=== PATIENT | male | born 1930 | race Caucasian/White ===

== ENCOUNTER 2018-02-17 07:07 | Day surgery (SDC) | payer OTHER, MEDICARE ==
--- NOTE | 2018-02-16 12:29 | HP ---
- Patient Scheduled date of Surgery: 02/17/18 Scheduled Surgical Procedure: Phacoemulsification and cataract extraction with PCIOL Affected Eye: Right Chief Complaint (Indication for surgery): Decreased vision affecting ADLs ( mature cataract od) - Ocular History Other Eye History: Narrow angles Eye Medications: vigamox Previous Eye Surgery: s/p LPI OD, s/p ce/pciol in [facility] - Medical History Illnesses: Other (arthritis) Current Medications: Ambulatory Orders Multivitamin [Daily Multiple Vitamin] 1 tab PO DAILY 10/12/11 Losartan Potassium 25 mg PO DAILY 12/16/15 Omeprazole [Prilosec (RX)] 40 mg PO DAILY 12/16/15 Allergies/Adverse Reactions: Allergies Allergy/AdvReac Type Severity Reaction Status Date / Time No Known Allergies Allergy Verified 10/12/11 11:27 Ocular Examination - Best Corrected Visual Acuity Distance: Right eye: 20/80 Distance: Left eye: 20/20 - External/Slit Lamp Examination Abnormalities: PI patent - Intraocular Pressure Intraocular Pressure - Right eye: 16 Intraocular Pressure-Left eye: 16 - Lens Lens: 3-4 + NS 3+ cortical change - Vitreous/Retina Vitreous/Retina: C:D 0.15 m/v/p wnl - Special Examination M - Right eye: -4.50-050 x 100 M - Left eye: +0.75 -1.25 x 080 K - Right eye: 41/41.75 x 180 K - Left eye: 40.75/42.25 x 175 AL - Right eye: 24.34 AL - Left eye: 25.26 IOL bag: +21.0 d AUOOTO IOL sulcus: +20.5 d [id number] IOL AC: +18.0 d [id number] - Plan Plan: Phacoemulsification and cataract extraction - IOL Right eye Post-hospital care will be provided in office on: 02/18/18
[2018-02-16 17:22] VITALS: BMI 28.2
[~2018-02-17 07:07] MED LIST: ACETAMINOPHEN 325 MG TABLET (FP) PO PRN; CIPROFLOXACIN HCL 0.3% OPHTH 2.5ML BOTTLE OP SCH; KETOROLAC TROMETHAMINE 0.5% 5 ML BOTTLE OPTHALMIC OP SCH; PHENYLEPHRINE 2.5% OPHTH SOLN 15 ML BOTTLE OP SCH; TOBRAMYCIN/DEXAMETHASONE OPHTH. OINTMENT 1 TUBE TP ONE; TROPICAMIDE 1% OPHTH SOLN 15 ML BOTTLE OP SCH
[2018-02-17] MEDS ORDERED: CHONDROITIN SU A/HYALUR SOD 1 KIT ONE ×2 (07:12→10:03)
--- NOTE | 2018-02-17 07:22 | HP ---
History & Physical Update - History History: No Change - Physical Physical: No Change - Assessment Assessment: No Change - Plan Plan: No Change (Reviewed H and P from Dr. Gutierrez [facility] 02/03/18 no changes)
[2018-02-17] MEDS ORDERED: LIDOCAINE HCL/PF 1% SDV 5ML VIAL ONE (07:24)
[2018-02-17] MEDS ORDERED: TOBRAMYCIN/DEXAMETHASONE OPHTH. OINTMENT 1 TUBE ONE (07:24)
[2018-02-17] MEDS ORDERED: LIDOCAINE HCL/PF 2% SDV 5ML VIAL ONE (07:24)
[2018-02-17] MEDS ORDERED: BUPIVACAINE HCL/PF 0.75% 10 ML VIAL ONE (07:24)
[2018-02-17] MEDS ORDERED: BSS (NA/CA/MG/K) BALANCED SALT SOLUTION OPHTH SOLN 15 ML BOTTLE ONE (07:25)
[2018-02-17 07:29] VITALS: TEMP 97.6
[2018-02-17] MEDS ORDERED: EPINEPHrine/PF 1 MG/1 ML (1:1,000) AMPULE ONE (07:30)
[2018-02-17] MEDS ORDERED: PHENYLEPHRINE 2.5% OPHTH SOLN 15 ML BOTTLE ONE (07:34)
[2018-02-17] MEDS ORDERED: TROPICAMIDE 1% OPHTH SOLN 15 ML BOTTLE ONE (07:34)
[2018-02-17] MEDS ORDERED: FLURBIPROFEN 0.03% OPHTH SOLN 2.5 ML BOTTLE ONE (07:34)
[2018-02-17] MEDS ORDERED: CIPROFLOXACIN 0.3% EYE DROPS 5 ML BOTTLE ONE (07:34)
[2018-02-17] MEDS ORDERED: FLURBIPROFEN 0.03% OPHTH SOLN 2.5 ML BOTTLE OD ONE ×3 (07:40→08:00)
[2018-02-17] MEDS ORDERED: TROPICAMIDE 1% OPHTH SOLN 15 ML BOTTLE OD ONE ×3 (07:40→08:00)
[2018-02-17] MEDS ORDERED: CIPROFLOXACIN HCL 0.3% OPHTH 2.5ML BOTTLE OD ONE ×3 (07:40→08:00)
[2018-02-17] MEDS ORDERED: PHENYLEPHRINE 2.5% OPHTH SOLN 15 ML BOTTLE OD ONE ×3 (07:40→08:00)
[2018-02-17] MEDS ORDERED: TRYPAN BLUE 0.5 ML DISP.SYRIN ONE (08:46)
[2018-02-17] MEDS ORDERED: BUPIVACAINE HCL/PF 0.75% 10 ML VIAL RB ONE (08:57)
[2018-02-17] MEDS ORDERED: LIDOCAINE HCL/PF 2% SDV 5ML VIAL INF ONE (08:57)
[2018-02-17] MEDS ORDERED: POVIDONE-IODINE 5% OPHTHALMIC PREP 30 ML SOLUTION OD ONE (08:58)
[2018-02-17] MEDS ORDERED: CHONDROITIN SU A/HYALUR SOD 1 KIT IO ONE (09:06)
[2018-02-17] MEDS ORDERED: BSS (NA/CA/MG/K) BALANCED SALT SOLUTION OPHTH SOLN 15 ML BOTTLE OD ONE (09:06)
[2018-02-17] MEDS ORDERED: TRYPAN BLUE 0.5 ML DISP.SYRIN IO ONE (09:06)
[2018-02-17] MEDS ORDERED: EPINEPHrine/PF 1 MG/1 ML (1:1,000) AMPULE SQ ONE (09:15)
[2018-02-17] MEDS ORDERED: TOBRAMYCIN/DEXAMETHASONE OPHTH. OINTMENT 1 TUBE TP ONE (09:32)
--- NOTE | 2018-02-17 09:40 | OP ---
Ophthalmology Operative Note Pre-Operative Diagnosis: Mature cataract Affected Eye: Right Operation: Phacoemulsification and cataract extraction with PCIOL (using trypan blue) Findings: mature cataract right eye Post-Operative Diagnosis: Same as Pre-op Copy Center Associate: None Anesthesiologist: Linus Armstrong Anesthesia: Retrobulbar Specimens Removed: none Estimated blood loss: <1 cc Drains & Tubes with Location: none Operative Report Dictated: Yes
--- NOTE | 2018-02-17 10:59 | OP ---
DATE OF OPERATION: 02/17/2018 PREOPERATIVE DIAGNOSIS: Mature cataract, right eye. POSTOPERATIVE DIAGNOSIS: Mature cataract, right eye. PROCEDURE: Phacoemulsification and cataract extraction with insertion of posterior chamber intraocular lens, right eye using Trypan blue. SURGEON: Shu Marshall MD MINE ENVIRONMENTAL ENGINEER: None. ANESTHESIA: Retrobulbar block. SITE LEASING AGENT: Linus Armstrong CRNA OPERATIVE PROCEDURE: Following satisfactory intravenous sedation, the patient received local anesthesia using a 50/50 mixture of lidocaine 2% and Marcaine 0.75%. A Van Lint lid block was delivered to the right eye using 4 mL of the mixture in a retrobulbar injection using 4 mL of the mixture. The patient was then prepped and draped in the usual sterile fashion so as to expose only the right eye. Ophthalmic Betadine was instilled into the inferior fornix, and the lashes were taped out of the surgical field. An eyelid speculum was placed into the right eye. A paracentesis was made in superior clear cornea at the limbus. An air bubble was injected into the anterior chamber, and Trypan blue was dripped on the anterior capsular edge. Viscoelastic material was then instilled into the anterior chamber via the paracentesis, and a 2.4-mm keratome was then used to create the main incision in temporal clear cornea at the limbus. A continuous curvilinear capsulorrhexis was performed using a cystotome and Utrata forceps. Hydrodissection of the lens cortex was performed using BSS on a cannula until the nucleus was noted to be freely rotating. The phacoemulsification tip was inserted via the main wound and used to sculpt 2 perpendicular grooves into the lens nucleus. The nucleus was cracked into 4 quadrants. Each quadrant was lifted out of the iris plane and individually phacoemulcified. The remaining cortical material was then aspirated using the irrigation and aspiration port. The capsular bag was inflated using Provisc, and a preloaded AcrySof lens, power +20.5 diopters, [id number] model number was injected into the anterior chamber and centered using a Sinskey hook. The residual viscoelastic material was removed from the anterior chamber using irrigation and aspiration. The wound edges were hydrated using BSS. The wound was tested for leakage. It was found to be watertight. Therefore, TobraDex ointment was placed in the eye, and the speculum was removed from the eye, and a sterile dressing was placed over the eye along with the shield. The patient was transferred to the recovery room in stable condition, told to follow up in 1 day. SHU MARSHALL M.D. [id number]
[2018-02-17 11:06] VITALS: BP 150/90; PULSE 60
[2018-02-17] MEDS ORDERED: ONDANSETRON 4 MG/2 ML VIAL IVPUSH PRN (11:12)
[2018-02-17] MEDS ORDERED: LACTATED RINGERS SOLUTION 1,000 ML IV SCH (11:15)
== END 2018-02-17 10:30 | disposition home or self-care (01) ==
LOC: JASU-SURG 07:07
PROVIDERS: ATTEND Ophthalmology
PROC: 08RJ3JZ Replacement of Right Lens with Synthetic Substitute, Percutaneous Approach (ICD-10-PCS; principal; 2018-02-17 08:30)
DX: H25.9 Unspecified age-related cataract (principal); I10 Essential (primary) hypertension